=== PATIENT | female | born 1945 | race Caucasian/White ===

== ENCOUNTER 2016-12-30 20:21 | Emergency (ER) | payer MEDICARE, OTHER ==
[~2016-12-30 20:21] MED LIST: DYAZ37.52; MVI
[2016-12-30 20:23] VITALS: PULSE 71; RESP 22; TEMP 98; O2SAT 97
[2016-12-30] MEDS ORDERED: MORPHINE SULFATE 8 MG/ML INJ IV PUSH ONE ×2 (20:45→22:15)
[2016-12-30] MEDS ORDERED: ONDANSETRON HCL 4 MG/2 ML VIAL IV PUSH ONE (20:45)
--- NOTE | 2016-12-30 20:58 | PD ---
HPI Chief Complaint: Injury Time Seen by Provider: 20:30 Travel History International Travel<30 days: No Contact w/Intl Traveler<30days: No Traveled to known affect area: No History of Present Illness HPI 71-year-old [id number] white female presents to emergency department by POV for evaluation of a left wrist injury. This had occurred just prior to arrival. Patient had slipped on a wet floor falling backwards onto her outstretched hands. Patient states that she had immediate pain and deformity. She denies any numbness or tingling. She did not injure her head, neck or back. This is a risk that she has had fracture in the past with ORIF and then hardware removal. Dr. Mcadams had operated on initially but Dr. Hayes had remove the hardware and then also performed carpal tunnel release. Patient states pain is severe. Worse with movement. Some relief of remaining still and ice. PFSH Past Medical History Narrative Medical Hypertension, hypothyroidism, left wrist fracture Diminished Hearing: No Hypertension: Yes Tetanus Vaccination: > 5 Years Past Surgical History Narrative Surgical Left wrist fracture with ORIF and hardware removal, left hand carpal tunnel release, left total knee. Social History Alcohol Use: Yes (OCCASIONALLY ) Tobacco Use: No Substance Use: No Allergies-Medications (Allergen,Severity, Reaction): Coded Allergies: No Known Allergies (Verified , 12/30/16) Reported Meds & Prescriptions Reported Meds & Active Scripts Active Lortab (Hydrocodone-Acetaminophen) 7.5-325 Mg Tab 1-2 Tab PO Q6H PRN Reported Probiotic (Lactobacillus Acidophilus) 1 Cap Cap 1 Cap PO TIDAC Aspirin Children's (Aspirin) 81 Mg Chew 81 Mg CHEW DAILY Micardis (Telmisartan) 80 Mg Tab 80 Mg PO DAILY Review of Systems Except as stated in HPI: all other systems reviewed are Neg Physical Exam Narrative GENERAL: Well-developed, well-nourished in no apparent distress. Nontoxic appearing. HEAD: Normocephalic, atraumatic. EYES: Pupils equal round and reactive. Extraocular motions intact. No scleral icterus. No injection or drainage. ENT: Nose clear. Throat without erythema, tonsillar hypertrophy or exudate. Uvula midline. Airway patent. NECK: Trachea midline. Supple, nontender, moves head freely. No central bony tenderness or spasm. CARDIOVASCULAR: Regular rate and rhythm without murmurs, gallops, or rubs. RESPIRATORY: Clear to auscultation. Breath sounds equal bilaterally. No wheezes , rales, or rhonchi. GASTROINTESTINAL: Abdomen soft, non-tender, nondistended. No hepato-splenomegaly , or palpable masses. No guarding. EXTREMITIES: No clubbing, cyanosis, examination of left upper extremity reveals a dinner fork deformity with intact skin. She has diffuse pain. She is able to move her fingers and has intact sensation and good Refill. No pain in the elbow, shoulder. The right upper shot as well as lower extremities are without localizing bony tenderness or deformity. BACK: Nontender without deformity. No flank tenderness. NEUROLOGICAL: Awake, alert and oriented x 3 .Cranial nerves grossly intact. Motor and sensory grossly within normal limits. Normal speech. Data Data Last Documented VS Vital Signs Date Time Temp Pulse Resp B/P (MAP) Pulse Ox O2 Delivery O2 Flow Rate FiO2 12/30/16 21:37 20 12/30/16 20:23 98.0 71 97 Room Air Orders Orders Electrocardiogram (12/30/16 20:35) Complete Blood Count With Diff (12/30/16 20:35) Comprehensive Metabolic Panel (12/30/16 20:35) Prothrombin Time / Inr (Pt) (12/30/16 20:35) Act Partial Throm Time (Ptt) (12/30/16 20:35) Urinalysis - C+S If Indicated (12/30/16 20:35) Chest, Single Ap (12/30/16 20:35) Iv Access Insert/Monitor (12/30/16 20:35) Ecg Monitoring (12/30/16 20:35) Oxygen Administration (12/30/16 20:35) Type And Screen (12/30/16 20:35) Splint Or Brace Apply/Monitor (12/30/16 20:35) Ondansetron Inj (Zofran Inj) (12/30/16 20:45) Morphine Inj (Morphine Inj) (12/30/16 20:45) Wrist, Limited (Ap&Lat) (12/30/16 20:35) Propofol 200 Mg/20 Ml Inj (Diprivan 200 (12/30/16 21:00) Morphine Inj (Morphine Inj) (12/30/16 22:15) Propofol 200 Mg/20 Ml Inj (Diprivan 200 (12/30/16 22:15) Wrist, Limited (Ap&Lat) (12/30/16 22:06) Fiberglass Sugartong Sp Ad Arm (12/30/16 ) Sling Cradle Arm (12/30/16 ) Labs Laboratory Tests Test 12/30/16 20:40 White Blood Count 7.3 TH/MM3 Red Blood Count 4.92 MIL/MM3 Hemoglobin 13.6 GM/DL Hematocrit 42.4 % Mean Corpuscular Volume 86.4 FL Mean Corpuscular Hemoglobin 27.6 PG Mean Corpuscular Hemoglobin Concent 32.0 % Red Cell Distribution Width 13.6 % Platelet Count 331 TH/MM3 Mean Platelet Volume 7.4 FL Neutrophils (%) (Auto) 51.5 % Lymphocytes (%) (Auto) 35.6 % Monocytes (%) (Auto) 8.7 % Eosinophils (%) (Auto) 3.2 % Basophils (%) (Auto) 1.0 % Neutrophils # (Auto) 3.8 TH/MM3 Lymphocytes # (Auto) 2.6 TH/MM3 Monocytes # (Auto) 0.6 TH/MM3 Eosinophils # (Auto) 0.2 TH/MM3 Basophils # (Auto) 0.1 TH/MM3 CBC Comment DIFF FINAL Differential Comment Prothrombin Time 10.6 SEC Prothromb Time International Ratio 1.0 RATIO Activated Partial Thromboplast Time 28.2 SEC Blood Urea Nitrogen 12 MG/DL Creatinine 0.71 MG/DL Random Glucose 106 MG/DL Total Protein 6.8 GM/DL Albumin 3.6 GM/DL Calcium Level 8.5 MG/DL Alkaline Phosphatase 66 U/L Aspartate Amino Transf (AST/SGOT) 18 U/L Alanine Aminotransferase (ALT/SGPT) 24 U/L Total Bilirubin 0.3 MG/DL Sodium Level 142 MEQ/L Potassium Level 3.6 MEQ/L Chloride Level 107 MEQ/L Carbon Dioxide Level 26.7 MEQ/L Anion Gap 8 MEQ/L Estimat Glomerular Filtration Rate 82 ML/MIN [facility] Medical Decision Making Medical Screen Exam Complete: Yes Emergency Medical Condition: Yes Medical Record Reviewed: Yes Interpretation(s) Left wrist: Post reduction shows reduction of the fracture segment area. Patient has good alignment. Last 24 hours Impressions Wrist X-Ray 12/30/162034 Signed Impressions: Service Date/Time: Abe, December 30, 2016 20:41 - CONCLUSION: Acute comminuted displaced and dorsally dislocated fractures involving the left distal radius and ulna. Vijay Miguel MD Chest X-Ray 12/30/162034 Signed Impressions: Service Date/Time: Friday, December 30, 2016 20:39 - CONCLUSION: 1. Blunting of the left costophrenic recess consistent with tiny pleural effusion or pleural thickening. 2. No acute focal pulmonary infiltrate or pulmonary vascular congestion. 3. Degenerative changes and scoliosis of the thoracic spine. Vijay Miguel MD Differential Diagnosis MDM: High Differential diagnoses: Fracture, sprain, strain, dislocation, contusion, neurovascular injury Narrative Course IV access is obtained. Routine laboratory tests sent for analysis. X-ray of the left wrist reveals a distal radius and ulnar fracture which is 100% displaced. Patient has requested Dr. Hayes. Patient was given 5 mg of morphine IV for pain. This is repeated for continued pain control. I discussed the case with Dr. Hayes. She has agreed to care for the patient. She will see the patient tomorrow as an outpatient and will schedule her for repair. Procedural sedation is performed using 100 mg of propofol IV. Closed reduction performed under procedural sedation. Procedures Procedure Narrative After the risks and benefits were discussed the following procedure was performed: MODERATE SEDATION: The patient was placed on a air traffic control specialist and pulse oximetry. An ambu bag and suction was immediately available at bedside. The patient was monitored by the nurse. Oxygen saturation, heart rate and blood pressure were monitored. Procedural sedation was acheived using 100 mg of propofol IV. The patient was observed until awake and alert. Procedural Sedation time in attendance was 20 minutes. Closed reduction left wrist fracture with procedural sedation: Patient is given procedural sedation using propofol. Timeout was performed. Constant monitoring with O2 sat monitoring and EKG. Respiratory standby. After adequate sedation patient's wrist is hyperextended and flex forward with reduction of the fracture segment which was palpable. Patient was then placed in a sugar tong splint. Patient's neurovascular status reexamined. She has a good radial pulse. She is able to move her fingers she has intact sensation. Patient tolerated procedure well. No complications. Diagnosis Primary Impression: Left wrist fracture Qualified Codes: S62.102A - Fracture of unspecified carpal bone, left wrist, initial encounter for closed fracture Additional Impression: Fracture treatment convalescence or palliative care Patient Instructions: General Instructions, Narcotic given in the ED, Moderate Sedation in Children (ED) Additional Instructions: Rest. Elevation above the heart at all times. Continue ice. Call Dr. Hayes at 9:00 in the morning for appointment tomorrow. Lortab for pain. Return to the ER for any problems. Med/Other Pt SpecificInfo: Prescription(s) given Scripts Hydrocodone-Acetaminophen (Lortab) 7.5-325 Mg Tab 1-2 TAB PO Q6H Y for PAIN, #20 TAB 0 Refills Prov: Wily Jimenez MD 12/30/16 Disposition: 01 DISCHARGE HOME Condition: Stable Jean Dunbar Dec 30, 2016 20:58
[2016-12-30 21:00] LABS: AUTOMATED NEUTROPHIL # 3.8 TH/MM3 (1.8-7.7); BASOPHIL # 0.1 TH/MM3 (0-0.2); EOSINOPHIL # 0.2 TH/MM3 (0-0.4); EOSINOPHIL % 3.2 % (0.0-4.0); HEMATOCRIT 42.4 % (35.0-46.0); HEMO FLAGS DIFF FINAL; LYMPH % 35.6 % (9.0-44.0); LYMPHOCYTE # 2.6 TH/MM3 (1.0-4.8); MEAN CELL VOLUME 86.4 FL (80.0-100.0); MEAN CORPUSCULAR HEMOGLOBIN 27.6 PG (27.0-34.0); MONO % 8.7 % (0.0-8.0); NEUT % 51.5 % (16.0-70.0); PLATELET COUNT 331 TH/MM3 (150-450); RED BLOOD COUNT 4.92 MIL/MM3 (4.00-5.30); RED CELL DISTRIBUTION WIDTH 13.6 % (11.6-17.2); WHITE BLOOD COUNT 7.3 TH/MM3 (4.0-11.0)
[2016-12-30] MEDS ORDERED: PROPOFOL 200 MG/20 ML AMP IV ONE ×2 (21:00→22:15)
[2016-12-30 21:12] LABS: APTT (PATIENT) 28.2 SEC (24.3-30.1); PROTHROMBIN TIME - PATIENT 10.6 SEC (9.8-11.6)
[2016-12-30 21:18] LABS: ALT (GPT) 24 U/L (10-53); ANION GAP 8 MEQ/L (5-15); AST (GOT) 18 U/L (15-37); BICARBONATE 26.7 MEQ/L (21.0-32.0); BLOOD UREA NITROGEN 12 MG/DL (7-18); CHLORIDE 107 MEQ/L (98-107); GLOMERULAR FILTRATION RATE 82 ML/MIN (>89); POTASSIUM 3.6 MEQ/L (3.5-5.1); SODIUM (NA) 142 MEQ/L (136-145)
[2016-12-30 21:19] LABS: ALKALINE PHOSPHATASE 66 U/L (45-117); TOTAL BILIRUBIN ADULT 0.3 MG/DL (0.2-1.0)
--- NOTE | 2016-12-30 21:19 | RADRPT ---
EXAM DATE/TIME: 12/30/2016 20:39 [facility] COMPARISON: No previous studies available for comparison. INDICATIONS : Evaluate for pneumonia, pneumothorax, or communicable disease. MEDICAL HISTORY : None. SURGICAL HISTORY : None. ENCOUNTER: Initial ACUITY: 1 day PAIN SCORE: 0/10 LOCATION: Bilateral chest FINDINGS: There is blunting of the left costophrenic recess consistent with possible tiny pleural effusion or p leural thickening. The heart is normal.. The pulmonary vascular pattern is normal. The lungs are rosalino ar. Degenerative changes and scoliosis of the thoracic spine are noted. CONCLUSION: 1. Blunting of the left costophrenic recess consistent with tiny pleural effusion or pleural thickeni ng. 2. No acute focal pulmonary infiltrate or pulmonary vascular congestion. 3. Degenerative changes and scoliosis of the thoracic spine. Vijay Miguel MD on December 30, 2016 at 21:05 Board Certified Radiologist. This report was verified electronically.
--- NOTE | 2016-12-30 21:23 | RADRPT ---
EXAM DATE/TIME: 12/30/2016 20:41 [facility] COMPARISON: No previous studies available for comparison. INDICATIONS : Fall. MEDICAL HISTORY : None. SURGICAL HISTORY : None. ENCOUNTER: Initial ACUITY: 1 day PAIN SCORE: 0/10 LOCATION: Right wrist FINDINGS: There is evidence of acute comminuted displaced fractures involving the left distal radius and ulna. The distal fragments are dorsally dislocated. CONCLUSION: Acute comminuted displaced and dorsally dislocated fractures involving the left distal radius and uln a. Vijay Miguel MD on December 30, 2016 at 21:06 Board Certified Radiologist. This report was verified electronically.
[2016-12-30 21:37] VITALS: RESP 20
[2016-12-30] MEDS ORDERED: ASPI81CH7 CHEW (21:46)
[2016-12-30] MEDS ORDERED: TELM1TAB56 PO (21:46)
[2016-12-30] MEDS ORDERED: LACTCAP8 PO (21:46)
[2016-12-30 21:56] VITALS: O2SAT 100
[2016-12-30] MEDS ORDERED: HYDR-3534 PO (22:20)
--- NOTE | 2016-12-30 22:34 | RADRPT ---
EXAM DATE/TIME: 12/30/2016 22:01 [facility] COMPARISON: WRIST LEFT LIMITED (AP & LAT), December 30, 2016, 20:41. INDICATIONS : Post reduction left wrist, fell MEDICAL HISTORY : None. SURGICAL HISTORY : None. ENCOUNTER: Subsequent ACUITY: 1 day PAIN SCORE: 2/10 LOCATION: Left Wrist FINDINGS: There has been closed reduction of the very severe comminuted fractures and dislocation of the distal radius and ulna. The fractures and alignment are improved status-post closed reduction but remain s lightly displaced. A cast overlies the wrist. CONCLUSION: Status-post closed reduction of the very severe comminuted fractures and dislocation of the distal ra dius and ulna with minimal residual displacement noted. Vijay Miguel MD on December 30, 2016 at 22:28 Board Certified Radiologist. This report was verified electronically.
== END 2016-12-30 23:15 | disposition home or self-care (01) ==
LOC: NEPD 20:21
DX: S62.102A Fracture of unspecified carpal bone, left wrist, initial encounter for closed fracture (principal); W01.0XXA Fall on same level from slipping, tripping and stumbling without subsequent striking against object, initial encounter; I10 Essential (primary) hypertension; E03.9 Hypothyroidism, unspecified; Z79.82 Long term (current) use of aspirin
CPT/HCPCS: 25565; 29125; 71010; 73100; 80053; 85025; 85610; 85730; 86077; 86850; 86870; 86900; 86901; 86902; 86920; 86922; 96374; 96375; 96376; 99152; 99285; J2270; J2405